=== PATIENT | female | born 1955 | race Hispanic/Latino ===

== ENCOUNTER 2021-02-21 09:10 | Emergency (ER) | payer OTHER ==
[~2021-02-21] VITALS: Ht 152.4 cm; Wt 79.4 kg
[2021-02-21 09:30] LABS: BASOPHILS % (AUTO) 0.5 % (0.0-5.0); EOSINOPHILS % (AUTO) 1.3 % (0.0-8.0); HEMATOCRIT 37.2 % (36-48); LYMPHOCYTES % (AUTO) 36.5 % (21.0-51.0); MEAN CORPUSCULAR HGB CONC 30.9 g/dL (32.0-36.0); MEAN CORPUSCULAR VOLUME 74.5 fL (79-99); MONOCYTES % (AUTO) 6.7 % (3.0-13.0); NEUTROPHILS % (AUTO) 54.6 % (40.0-77.0); PLATELET COUNT (AUTO) 223 K/uL (130-400); RED BLOOD CELL COUNT(AUTO) 4.99 MIL/uL (4.00-5.50); RED CELL DISTRIBUTION WIDTH 17.6 % (11.0-15.5); WHITE BLOOD COUNT (AUTO) 7.9 K/uL (4.8-10.8)
[2021-02-21 09:42] LABS: ALBUMIN 3.4 g/dL (3.5-5.0); BILIRUBIN,TOTAL 0.4 mg/dL (0.2-1.0); CREATININE 0.9 mg/dL (0.5-1.5); TOTAL PROTEIN, SERUM 8.3 g/dL (6.0-8.3)
[2021-02-21 09:42] LABS: APPEARANCE,URINE TURBID (CLEAR); BILIRUBIN,URINE NEGATIVE (NEGATIVE); COLOR,URINE YELLOW (YELLOW); GLUCOSE, URINE (UA) NEGATIVE (NEGATIVE); KETONES,URINE NEGATIVE (NEGATIVE); LEUKOCYTE ESTERASE ,URINE LARGE (NEGATIVE); NITRATE,URINE NEGATIVE (NEGATIVE); OCCULT BLOOD,URINE NEGATIVE (NEGATIVE); PROTEIN,URINE >=300 mg/dL (NEGATIVE); UROBILINOGEN,URINE 0.2 mg/dL (0.2-1.0)
[2021-02-21 09:55] LABS: AMORPHOUS SEDIMENT,UR Many /LPF (None Seen); BACTERIA,URINE Moderate /HPF (None Seen); SQUAMOUS EPITHELIAL CELL,UR Rare /HPF (0-2)
[2021-02-21] MEDS ORDERED: ONDANSETRON 4MG INJ ONE (11:41)
[2021-02-21] MEDS ORDERED: PHENAZOPYRIDINE HCL 200 MG TABLET ONE (11:41)
[2021-02-21] MEDS ORDERED: MORPHINE 4 MG SYG ONE (11:42)
[2021-02-21] MEDS ORDERED: 0.9%NACL 1000ML 1,000 ML IV SCH (12:00)
[2021-02-21] MEDS ORDERED: PHENAZOPYRIDINE HCL 200 MG TABLET PO SCH (12:00)
[2021-02-21] MEDS ORDERED: ONDANSETRON 4MG INJ IVP SCH (12:00)
[2021-02-21] MEDS ORDERED: MORPHINE 4 MG SYG IV SCH (12:00)
[2021-02-21] MEDS ORDERED: CEPH500C2 PO (13:41)
[2021-02-21] MEDS ORDERED: PHEN-847 PO (13:41)
[2021-02-21] MEDS ORDERED: CEFTRIAXONE 1G VIAL IVP ONE (13:50)
[2021-02-21 14:23] VITALS: BP 111/57
== END 2021-02-21 14:20 | disposition home or self-care (01) ==
LOC: EDH 09:10
DX: N39.0 Urinary tract infection, site not specified (principal); R33.9 Retention of urine, unspecified; E86.1 Hypovolemia
CPT/HCPCS: 36415; 51702; 74176; 80053; 81001; 85025; 87077; 87088; 87186; 96361; 96374; 96375; 99284; J0696; J2270; J2405; J7030

== ENCOUNTER 2021-04-15 07:26 | Day surgery (SDC) | payer OTHER ==
[2021-04-13 14:26] LABS: APPEARANCE,URINE CLOUDY (CLEAR); BILIRUBIN,URINE NEGATIVE (NEGATIVE); COLOR,URINE YELLOW (YELLOW); GLUCOSE, URINE (UA) NEGATIVE (NEGATIVE); KETONES,URINE NEGATIVE (NEGATIVE); LEUKOCYTE ESTERASE ,URINE MODERATE (NEGATIVE); NITRATE,URINE POSITIVE (NEGATIVE); OCCULT BLOOD,URINE TRACE-INTACT (NEGATIVE); PH,URINE 6.5 (5.0-8.0); PROTEIN,URINE NEGATIVE (NEGATIVE); UROBILINOGEN,URINE 0.2 mg/dL (0.2-1.0)
[2021-04-13 15:30] LABS: BACTERIA,URINE Moderate /HPF (None Seen); WBC,URINE 26-50 /HPF (0-1)
[2021-04-13 15:31] LABS: SQUAMOUS EPITHELIAL CELL,UR Moderate /HPF (0-2)
[2021-04-14 09:24] VITALS: BP 117/63
[~2021-04-15] VITALS: Ht 154.9 cm; Wt 80.5 kg
[~2021-04-15 07:26] MED LIST: APIX5TAB PO; CEFAZOLIN SODIUM 1 GM VIAL IVP SCH; ENOX40DI8 SQ; LEVOFLOXACIN 500 MG/D5W 100 ML 100 ML IV ONE; OMEP40CA21 PO; TAMS-1 PO
== END 2021-04-15 08:30 | disposition home or self-care (01) ==
LOC: DAH 07:26
PROVIDERS: ATTEND Orthopaedic Surgery
DX: M16.0 Bilateral primary osteoarthritis of hip (principal); U07.1 COVID-19; G89.29 Other chronic pain; Z79.01 Long term (current) use of anticoagulants; Z79.899 Other long term (current) drug therapy; Z98.890 Other specified postprocedural states; Z53.8 Procedure and treatment not carried out for other reasons
CPT/HCPCS: 81001; 87077 ×2; 87088; 87186 ×2; 87635; 87641; C9803; J1956

== ENCOUNTER 2021-06-11 10:52 | Inpatient (IN) | payer OTHER ==
[2021-06-09 09:46] LABS: BASOPHILS % (AUTO) 1.3 % (0.0-5.0); EOSINOPHILS % (AUTO) 2.4 % (0.0-8.0); HEMATOCRIT 39.2 % (36-48); LYMPHOCYTES % (AUTO) 33.4 % (21.0-51.0); MEAN CORPUSCULAR HEMOGLOBIN 23.9 pg (27.0-33.0); MEAN CORPUSCULAR HGB CONC 30.1 g/dL (32.0-36.0); MEAN CORPUSCULAR VOLUME 79.5 fL (79-99); MONOCYTES % (AUTO) 8.4 % (3.0-13.0); NEUTROPHILS % (AUTO) 54.3 % (40.0-77.0); PLATELET COUNT (AUTO) 194 K/uL (130-400); RED BLOOD CELL COUNT(AUTO) 4.93 MIL/uL (4.00-5.50); RED CELL DISTRIBUTION WIDTH 15.8 % (11.0-15.5); WHITE BLOOD COUNT (AUTO) 4.6 K/uL (4.8-10.8)
[2021-06-09 09:53] LABS: APPEARANCE,URINE CLOUDY (CLEAR); BILIRUBIN,URINE NEGATIVE (NEGATIVE); COLOR,URINE YELLOW (YELLOW); GLUCOSE, URINE (UA) NEGATIVE (NEGATIVE); KETONES,URINE NEGATIVE (NEGATIVE); LEUKOCYTE ESTERASE ,URINE SMALL (NEGATIVE); NITRATE,URINE POSITIVE (NEGATIVE); OCCULT BLOOD,URINE NEGATIVE (NEGATIVE); PROTEIN,URINE TRACE mg/dL (NEGATIVE); UROBILINOGEN,URINE 0.2 mg/dL (0.2-1.0)
[2021-06-09 09:55] LABS: CREATININE 0.7 mg/dL (0.5-1.5); POTASSIUM 4.1 mmol/L (3.5-5.1)
[2021-06-09 10:19] LABS: PROTHROMBIN TIME 10.9 SEC (9.6-11.6)
[2021-06-09 10:39] LABS: BACTERIA,URINE Many /HPF (None Seen); RBC,URINE 0-1 /HPF (0-1); SQUAMOUS EPITHELIAL CELL,UR Few /HPF (0-2)
[2021-06-10 08:25] VITALS: BP 131/66
[2021-06-11] VITALS (18 sets, daily range): BP systolic 73–125; BP diastolic 38–75
[~2021-06-11] VITALS: Ht 157.5 cm; Wt 81.6 kg
[~2021-06-11 10:52] MED LIST changes: -CEFAZOLIN SODIUM 1 GM VIAL IVP SCH; +GENTAMICIN SULFATE IV SCH; -LEVOFLOXACIN 500 MG/D5W 100 ML 100 ML IV ONE; +OMEP20TA20 PO; -OMEP40CA21 PO; +[UNRECOGNIZED DRUG - OTHER] IV SCH
[2021-06-11] MEDS ORDERED: LACTATED RINGERS 1000ML 1,000 ML IV ONE (11:14)
[2021-06-11] MEDS ORDERED: GENTAMICIN SULFATE 240 MG in 0.9%NACL 100ML 100 ML IV SCH (11:30)
[2021-06-11] MEDS: CEFAZOLIN SODIUM 1 GM VIAL ONE ×2 (11:53→15:25)
[2021-06-11] MEDS ORDERED: CEFAZOLIN SODIUM 1 GM VIAL ONE ×2 (15:00→18:17)
[2021-06-11] MEDS ORDERED: MIDAZOLAM HCL 1 MG/ML 2ML VIAL ONE (15:07)
[2021-06-11] MEDS ORDERED: ROCURONIUM 10MG/1ML SYR 10 MG/ML ML ONE ×2 (15:07→16:43)
[2021-06-11] MEDS ORDERED: PROPOFOL 10 MG/ML 20ML VIAL IV ONE (15:07)
[2021-06-11] MEDS ORDERED: FENTANYL CITRATE PF 50 MCG/1 ML 2ML VIAL ONE (15:07)
[2021-06-11] MEDS ORDERED: LIDOCAINE PF 100MG/5ML (2%) SYRINGE 5ML ONE (15:07)
[2021-06-11] MEDS ORDERED: SUCCINYLCHOLINE CHLORIDE 20 MG/ML 10 ML VIAL ONE (15:07)
[2021-06-11] MEDS ORDERED: ROPIVACAINE 0.5% 5MG/ML 30ML IJ ONE ×2 (15:11→20:05)
[2021-06-11] MEDS ORDERED: DEXAMETHASONE SOD PHOSPHATE 10MG/ML 1ML VIAL ONE (15:24)
[2021-06-11] MEDS ORDERED: CEFAZOLIN SODIUM 1 GM VIAL IRRIG ONE (16:14)
[2021-06-11] MEDS ORDERED: EPHEDRINE SULFATE 50 MG/ML AMPULE ONE ×2 (16:21→20:12)
[2021-06-11] MEDS ORDERED: NEOSTIGMINE 5MG/5ML SYR IV ONE (18:46)
[2021-06-11] MEDS ORDERED: GLYCOPYRROLATE 1 MG/5 ML SYRINGE ONE (18:46)
[2021-06-11] MEDS ORDERED: PHENYLEPHRINE HCL 10 MG/ML 1ML VIAL IV ONE (18:55)
[2021-06-11] MEDS ORDERED: POTASSIUM CHLORIDE 10% ELIXIR 20 MEQ/15 ML UDCUP PO PRN (19:00)
[2021-06-11] MEDS ORDERED: KETOROLAC 15MG/ML VIAL (15MG/ML) IV PRN (19:00)
[2021-06-11] MEDS: ACETAMINOPHEN 500 MG TABLET PO SCH (19:00)
[2021-06-11] MEDS ORDERED: FERROUS FUMARATE 324 MG TABLET PO PRN (19:00)
[2021-06-11] MEDS ORDERED: TRAMADOL HCL 50 MG TABLET PO PRN (19:00)
[2021-06-11] MEDS ORDERED: POTASSIUM CHLORIDE 20MEQ/100ML 100 ML IV PRN (19:00)
[2021-06-11] MEDS ORDERED: DiphenhydrAMINE HCL 50 MG/ML VIAL IVP PRN (19:00)
[2021-06-11] MEDS: 0.9%NACL 1000ML 1,000 ML IV SCH ×3 (19:00→20:00)
[2021-06-11] MEDS ORDERED: KCL 20 MEQ ERTAB PO PRN (19:00)
[2021-06-11] MEDS ORDERED: TEMAZEPAM 15 MG CAPSULE PO PRN (19:00)
[2021-06-11] MEDS ORDERED: LIDOCAINE HCL-MPF 1% 2ML VIAL IV PRN (19:00)
[2021-06-11] MEDS ORDERED: MEPERIDINE-PF 25 MG/ML SYG ONE (20:05)
[2021-06-11] MEDS: CELECOXIB 200 MG CAP PO SCH (21:00)
[2021-06-11] MEDS: FAMOTIDINE 20MG TAB PO SCH (21:00)
[2021-06-11] MEDS: ONDANSETRON 4MG INJ IVP PRN (21:29)
[2021-06-11] MEDS ORDERED: PROMETHAZINE HCL 25 MG/ML 1ML AMPULE IM PRN (23:00)
[2021-06-11] MEDS: CEFAZOLIN SODIUM 1 GM VIAL IVP SCH (23:34)
[2021-06-12] VITALS (9 sets, daily range): BP systolic 97–130; BP diastolic 43–67
[2021-06-12] MEDS: ACETAMINOPHEN 500 MG TABLET PO SCH ×3 (03:00→21:06)
[2021-06-12 04:15] LABS: HEMATOCRIT 29.6 % (36-48); MEAN CORPUSCULAR HEMOGLOBIN 24.8 pg (27.0-33.0); MEAN CORPUSCULAR HGB CONC 31.4 g/dL (32.0-36.0); MEAN CORPUSCULAR VOLUME 78.9 fL (79-99); RED BLOOD CELL COUNT(AUTO) 3.75 MIL/uL (4.00-5.50); RED CELL DISTRIBUTION WIDTH 15.9 % (11.0-15.5); WHITE BLOOD COUNT (AUTO) 9.3 K/uL (4.8-10.8)
[2021-06-12 04:27] LABS: CREATININE 0.8 mg/dL (0.5-1.5); POTASSIUM 4.4 mmol/L (3.5-5.1)
[2021-06-12] MEDS: 0.9%NACL 1000ML 1,000 ML IV SCH (05:00)
[2021-06-12] MEDS: APIXABAN 5 MG TABLET PO SCH ×4 (08:40→21:05)
[2021-06-12] MEDS: FAMOTIDINE 20MG TAB PO SCH ×2 (08:43→21:05)
[2021-06-12] MEDS: PANTOPRAZOLE 40 MG TAB DR PO SCH (08:44)
[2021-06-12] MEDS: CELECOXIB 200 MG CAP PO SCH ×2 (08:44→21:05)
[2021-06-12] MEDS: TAMSULOSIN HCL 0.4 MG CAP.ER.24H PO SCH ×2 (08:44→08:45)
[2021-06-12] MEDS: POLYETHYLENE GLYCOL 3350 17 GM POWD.PACK PO SCH (08:44)
[2021-06-12] MEDS: CEFAZOLIN SODIUM 1 GM VIAL IVP SCH (08:45)
[2021-06-12] MEDS: OXYCODONE HCL 5 MG TAB PO PRN ×2 (08:46→13:12)
[2021-06-12] MEDS: CALCIUM CARB 500MG PO PRN (21:04)
[2021-06-13 03:55] VITALS: BP 98/50
[2021-06-13] MEDS: ACETAMINOPHEN 500 MG TABLET PO SCH ×3 (05:47→21:14)
[2021-06-13] MEDS: ONDANSETRON 4MG INJ IVP PRN (07:52)
[2021-06-13] MEDS: PANTOPRAZOLE 40 MG TAB DR PO SCH (07:53)
[2021-06-13 08:00] VITALS: BP 112/54
[2021-06-13] MEDS: APIXABAN 5 MG TABLET PO SCH ×4 (09:00→20:00)
[2021-06-13] MEDS: FAMOTIDINE 20MG TAB PO SCH ×2 (10:19→19:56)
[2021-06-13] MEDS: TAMSULOSIN HCL 0.4 MG CAP.ER.24H PO SCH (10:19)
[2021-06-13] MEDS: CELECOXIB 200 MG CAP PO SCH ×2 (10:19→19:56)
[2021-06-13] MEDS: POLYETHYLENE GLYCOL 3350 17 GM POWD.PACK PO SCH (10:23)
[2021-06-13 12:00] VITALS: BP 105/52
[2021-06-13 16:00] VITALS: BP 124/62
[2021-06-13] MEDS: CALCIUM CARB 500MG PO PRN (17:10)
[2021-06-13 18:31] LABS: HEMATOCRIT 29.7 % (36-48)
[2021-06-13] MEDS ORDERED: FUROSEMIDE 20MG VIAL ONE (18:36)
[2021-06-13] MEDS ORDERED: FUROSEMIDE 20MG VIAL IV ONE (19:00)
[2021-06-13] MEDS: OXYCODONE HCL 5 MG TAB PO PRN (19:57)
[2021-06-13 20:00] VITALS: BP 107/62
[2021-06-14] VITALS: BP 108/58
[2021-06-14 04:00] VITALS: BP 109/57
[2021-06-14 04:15] LABS: HEMATOCRIT 29.7 % (36-48)
[2021-06-14] MEDS: ACETAMINOPHEN 500 MG TABLET PO SCH ×3 (05:18→20:11)
[2021-06-14] MEDS: PANTOPRAZOLE 40 MG TAB DR PO SCH ×2 (07:30→08:43)
[2021-06-14 08:11] VITALS: BP 107/58
[2021-06-14] MEDS: POLYETHYLENE GLYCOL 3350 17 GM POWD.PACK PO SCH (08:42)
[2021-06-14] MEDS: APIXABAN 5 MG TABLET PO SCH ×3 (08:42→20:10)
[2021-06-14] MEDS: CELECOXIB 200 MG CAP PO SCH ×2 (08:43→20:10)
[2021-06-14] MEDS: FAMOTIDINE 20MG TAB PO SCH ×2 (08:43→20:10)
[2021-06-14] MEDS: TAMSULOSIN HCL 0.4 MG CAP.ER.24H PO SCH ×2 (08:44→09:00)
[2021-06-14] MEDS: OXYCODONE HCL 5 MG TAB PO PRN ×2 (08:53→13:05)
[2021-06-14 11:18] VITALS: BP 118/63
[2021-06-14] MEDS ORDERED: MAGNESIUM CITRATE 296 ML SOLUTION PO SCH (11:30)
[2021-06-14 16:11] VITALS: BP 118/62
[2021-06-14] MEDS ORDERED: BISACODYL 10 MG SUPP.RECT RC PRN (19:00)
[2021-06-14 20:00] VITALS: BP 115/62
[2021-06-15] VITALS (7 sets, daily range): BP systolic 102–129; BP diastolic 55–70
[2021-06-15] MEDS: PANTOPRAZOLE 40 MG TAB DR PO SCH (05:58)
[2021-06-15] MEDS: ACETAMINOPHEN 500 MG TABLET PO SCH ×3 (05:59→21:02)
[2021-06-15] MEDS: CELECOXIB 200 MG CAP PO SCH ×2 (07:51→21:00)
[2021-06-15] MEDS: APIXABAN 5 MG TABLET PO SCH ×2 (07:51→21:00)
[2021-06-15] MEDS: TAMSULOSIN HCL 0.4 MG CAP.ER.24H PO SCH (07:52)
[2021-06-15] MEDS: FAMOTIDINE 20MG TAB PO SCH ×2 (07:52→21:00)
[2021-06-15] MEDS: POLYETHYLENE GLYCOL 3350 17 GM POWD.PACK PO SCH (07:53)
[2021-06-15] MEDS ORDERED: HYDR-4060 PO (20:36)
[2021-06-15] MEDS ORDERED: FERR324T10 PO (20:36)
[2021-06-16 04:13] VITALS: BP 131/63
[2021-06-16] MEDS: ACETAMINOPHEN 500 MG TABLET PO SCH (06:22)
[2021-06-16] MEDS: PANTOPRAZOLE 40 MG TAB DR PO SCH (06:22)
[2021-06-16 08:03] VITALS: BP 127/75
[2021-06-16] MEDS: TAMSULOSIN HCL 0.4 MG CAP.ER.24H PO SCH (09:00)
[2021-06-16] MEDS: POLYETHYLENE GLYCOL 3350 17 GM POWD.PACK PO SCH (09:00)
[2021-06-16] MEDS: FAMOTIDINE 20MG TAB PO SCH (09:08)
[2021-06-16] MEDS: APIXABAN 5 MG TABLET PO SCH (09:09)
[2021-06-16] MEDS: CELECOXIB 200 MG CAP PO SCH (09:09)
[2021-06-16 11:21] VITALS: BP 128/76
== END 2021-06-16 12:33 | disposition home health service (06) | DRG 470 ==
LOC: DAH 10:52 → 4BH 10:53 → OBSVTOIN 10:53
PROVIDERS: ADMIT Orthopaedic Surgery; ATTEND Orthopaedic Surgery
PROC: 0SR903Z Replacement of Right Hip Joint with Ceramic Synthetic Substitute, Open Approach (ICD-10-PCS; principal; 2021-06-12)
PROC: 30233N1 Transfusion of Nonautologous Red Blood Cells into Peripheral Vein, Percutaneous Approach (ICD-10-PCS; 2021-06-13)
DX: M16.31 Unilateral osteoarthritis resulting from hip dysplasia, right hip (principal); D62 Acute posthemorrhagic anemia; Z20.822 Contact with and (suspected) exposure to COVID-19; Z90.710 Acquired absence of both cervix and uterus; Z87.440 Personal history of urinary (tract) infections; Z86.711 Personal history of pulmonary embolism; Z87.11 Personal history of peptic ulcer disease; M81.0 Age-related osteoporosis without current pathological fracture; Z79.01 Long term (current) use of anticoagulants
CPT/HCPCS: 36415; 36430; 73503; 80048; 81001; 85014; 85018; 85025; 85027; 85610; 86850; 86900; 86901; 86923; 87088; 87635; 87641; 93005; 97039; C1776; C9803; G0378; J0330; J0690; J1100; J1580; J1940; J2001; J2175; J2250; J2370; J2405; J2704; J2710; J2795; J3010; J3490; J7030; J7120; P9016

== ENCOUNTER → 2021-12-12 | Outpatient (CLI) | payer OTHER ==
[~2021-12-12] MED LIST changes: -ENOX40DI8 SQ; +FERR324T10 PO; -GENTAMICIN SULFATE IV SCH; +HYDR-4060 PO; -[UNRECOGNIZED DRUG - OTHER] IV SCH
== END | disposition home or self-care (01) ==
LOC: SLP 20:13
PROVIDERS: ATTEND Internal Medicine Cardiovascular Disease
DX: G47.33 Obstructive sleep apnea (adult) (pediatric) (principal)
CPT/HCPCS: 95810

== ENCOUNTER 2023-10-27 22:02 | Emergency (ER) | payer OTHER ==
[~2023-10-27] VITALS: Ht 154.9 cm; Wt 91.2 kg
[2023-10-27 22:04] VITALS: BP 115/73
[2023-10-27 22:47] LABS: APPEARANCE,URINE TURBID (CLEAR); BILIRUBIN,URINE NEGATIVE (NEGATIVE); COLOR,URINE YELLOW (YELLOW); GLUCOSE, URINE (UA) NEGATIVE (NEGATIVE); KETONES,URINE NEGATIVE (NEGATIVE); LEUKOCYTE ESTERASE ,URINE 500 Leu/uL (NEGATIVE); NITRATE,URINE NEGATIVE (NEGATIVE); OCCULT BLOOD,URINE MODERATE (NEGATIVE); PH,URINE 7.5 (5.0-8.0); PROTEIN,URINE 200 mg/dL (NEGATIVE); UROBILINOGEN,URINE 0.2 mg/dL (0.2-1.0)
[2023-10-27 22:48] LABS: ADD UA MICROSCOPIC YES
[2023-10-27 23:10] LABS: BACTERIA,URINE MANY /HPF (None Seen); MUCUS,URINE RARE LPF (None Seen); RBC,URINE 51-100 /HPF (0-1); SQUAMOUS EPITHELIAL CELL,UR MOD /HPF (0-2); WBC CLUMP MANY /HPF (0-1); WBC,URINE TNTC /HPF (0-1)
[2023-10-27 23:29] LABS: BASOPHILS # (AUTO) 0.04 K/uL (0.00-0.20); BASOPHILS % (AUTO) 0.6 % (0.0-5.0); EOSINOPHILS # (AUTO) 0.25 K/uL (0.00-0.70); HEMATOCRIT 40.3 % (36-48); IMMATURE GRANULOCYTE ABSOLUTE 0.04 K/uL (0-1); LYMPHOCYTES # (AUTO) 1.1 K/uL (1.0-4.8); LYMPHOCYTES % (AUTO) 17.2 % (21.0-51.0); MEAN CORPUSCULAR HEMOGLOBIN 25.9 pg (27.0-33.0); MEAN CORPUSCULAR HGB CONC 31.3 g/dL (32.0-36.0); MEAN CORPUSCULAR VOLUME 82.8 fL (79-99); MONOCYTES # (AUTO) 0.5 K/uL (0.1-1.0); MONOCYTES % (AUTO) 8.3 % (3.0-13.0); NEUTROPHILS # (AUTO) 4.4 K/uL (1.8-7.7); NEUTROPHILS % (AUTO) 69.3 % (40.0-77.0); PLATELET COUNT (AUTO) 207 K/uL (130-400); RED BLOOD CELL COUNT(AUTO) 4.87 MIL/uL (4.00-5.50); WHITE BLOOD COUNT (AUTO) 6.3 K/uL (4.8-10.8)
[2023-10-27 23:40] LABS: INR 0.98 (0.85-1.15); PROTHROMBIN TIME 10.6 SEC (9.6-11.6)
[2023-10-27 23:42] LABS: PARTIAL THROMBOPLASTIN TIME 31.8 SEC (26.3-35.5)
[2023-10-27 23:46] LABS: POTASSIUM 4.3 mmol/L (3.5-5.1)
[2023-10-27 23:52] LABS: ALBUMIN 2.9 g/dL (3.5-5.0); BILIRUBIN,TOTAL 0.4 mg/dL (0.2-1.0); TOTAL PROTEIN, SERUM 7.7 g/dL (6.0-8.3)
[2023-10-28 00:03] VITALS: PULSE 80; RESP 20; TEMP 98.3; O2SAT 98
[2023-10-28] MEDS ORDERED: LEVO750T39 PO (00:09)
[2023-10-28] MEDS: OXYCODONE/ACETAMIN 5/325MG TAB PO ONE (00:36)
[2023-10-28] MEDS: cefTRIAXone 1G VIAL IVPB ONE (00:36)
[2023-10-28] MEDS ORDERED: TAMS-1 PO (01:28)
== END 2023-10-28 01:41 | disposition home or self-care (01) ==
LOC: EDH 22:02
DX: N39.0 Urinary tract infection, site not specified (principal); R33.9 Retention of urine, unspecified; Z79.899 Other long term (current) drug therapy; Z98.890 Other specified postprocedural states
CPT/HCPCS: 99283; 80053; 85025; 85610; 85730; 87086; 81001; 36415; 51701; 96374; J0696

== ENCOUNTER 2023-12-26 08:12 | Emergency (ER) | payer OTHER ==
[~2023-12-26] VITALS: Ht 157.5 cm; Wt 92.5 kg
[~2023-12-26 08:12] MED LIST changes: +LEVO750T39 PO
[2023-12-26 08:50] LABS: BASOPHILS # (AUTO) 0.04 K/uL (0.00-0.20); BASOPHILS % (AUTO) 0.5 % (0.0-5.0); EOSINOPHILS # (AUTO) 0.14 K/uL (0.00-0.70); EOSINOPHILS % (AUTO) 1.8 % (0.0-8.0); HEMATOCRIT 44.1 % (36-48); IMMATURE GRANULOCYTE ABSOLUTE 0.02 K/uL (0-1); LYMPHOCYTES # (AUTO) 0.9 K/uL (1.0-4.8); LYMPHOCYTES % (AUTO) 11.2 % (21.0-51.0); MEAN CORPUSCULAR HEMOGLOBIN 26.2 pg (27.0-33.0); MEAN CORPUSCULAR HGB CONC 31.7 g/dL (32.0-36.0); MEAN CORPUSCULAR VOLUME 82.4 fL (79-99); MONOCYTES # (AUTO) 0.3 K/uL (0.1-1.0); MONOCYTES % (AUTO) 3.3 % (3.0-13.0); NEUTROPHILS # (AUTO) 6.5 K/uL (1.8-7.7); NEUTROPHILS % (AUTO) 82.9 % (40.0-77.0); PLATELET COUNT (AUTO) 209 K/uL (130-400); RED BLOOD CELL COUNT(AUTO) 5.35 MIL/uL (4.00-5.50); WHITE BLOOD COUNT (AUTO) 7.8 K/uL (4.8-10.8)
[2023-12-26 08:57] LABS: APPEARANCE,URINE CLOUDY (CLEAR); BILIRUBIN,URINE MODERATE mg/dL (NEGATIVE); COLOR,URINE BROWN (YELLOW); GLUCOSE, URINE (UA) 100 mg/dL (NEGATIVE); KETONES,URINE 15 mg/dL (NEGATIVE); LEUKOCYTE ESTERASE ,URINE LARGE Leu/uL (NEGATIVE); NITRATE,URINE POSITIVE (NEGATIVE); OCCULT BLOOD,URINE SMALL (NEGATIVE); PROTEIN,URINE >=300 mg/dL (NEGATIVE)
[2023-12-26 09:00] LABS: POTASSIUM 3.8 mmol/L (3.5-5.1)
[2023-12-26 09:02] LABS: ADD UA MICROSCOPIC YES
--- NOTE | 2023-12-26 09:23 | HMCIMG ---
CT ABDOMEN/PELVIS W/O CONTRAST HISTORY: Abdominal pain COMPARISON: 02/21/2021 TECHNIQUE: Multiple sequential axial images of the abdomen and pelvis were obtained from the dome of the diaphragm through symphysis pubis. Patient was not given contrast through intravenous route. Oral contrast was not given. FINDINGS: No pleural effusion is seen bilaterally. Left lower lung subsegmental atelectasis changes are seen. Elevation of left hemidiaphragm is seen. There is hiatal hernia. Degenerative changes of the thoracolumbar spine are present. The heart is not enlarged. Gallstone is seen in the distended gallbladder. Liver measures 17 cm. The liver, spleen, adrenal glands and pancreas are unremarkable. There is no evidence of hydronephrosis bilaterally. No evidence of renal stone is seen. Fecal material is seen in the colon. There are normal size retroperitoneal and mesenteric lymph nodes. No ascites is seen. Atherosclerotic changes are present. No CT evidence of acute appendicitis is seen. There is diverticulosis. Pelvic sidewalls are symmetric bilaterally. Bladder is distended with bladder wall thickening measuring 8mm with adjacent fat stranding suspicious for cystitis. Urinalysis correlation may be helpful. Postop changes are seen of the right hip. IMPRESSION: 1. Distended bladder with adjacent fat stranding may be related to cystitis. Urinalysis correlation may be helpful. Diverticulosis. Fecal material in the colon. Gallstone in the distended gallbladder. CT was performed with one or more following dose reduction techniques: automated exposure control, adjustment of the mA and kv according to patient's size, or use of a iterative reconstruction technique.
[2023-12-26 09:30] LABS: WBC,URINE TNTC /HPF (0-1)
[2023-12-26 09:31] LABS: BACTERIA,URINE Many /HPF (None Seen); MUCUS,URINE Few LPF (None Seen); SQUAMOUS EPITHELIAL CELL,UR Few /HPF (0-2)
--- NOTE | 2023-12-26 09:34 | ERN ---
General Chief Complaint: Painful Urination Stated Complaint: DYSURIA, FLANK PAIN Time Seen by MD: 08:27 Source: patient History of Present Illness Initial Comments Patient is a 68-year-old female coming in to be evaluated for lower abdominal discomfort. Patient states that this has been going on for a couple of days. Patient also states that she has a history of a ventral hernia and was concerned that it might have reopened. No fever no chills. Allergies: Coded Allergies: No Known Allergies (Unverified Allergy, Unknown, 02/21/21) Home Meds Active Scripts Tamsulosin HCl (Flomax) 0.4 Mg Cap.er.24h, 0.4 MG PO DAILY for 5 Days, #5 CAPSULE. Prov:KESHA MOORE 10/28/23 Levofloxacin (Levofloxacin) 750 Mg Tablet, 750 MG PO DAILY for 7 Days, #7 TAB Prov:PASCUAL ZAVALA MD 10/28/23 Hydrocodone/Acetaminophen (Hydrocodon-Acetaminophen 5-325) 1 Each Tablet, 1-2 EACH PO Q6HPRN PRN for ACUTE POST-OP PAIN, #56 TAB 0 Refills Prov:RACHEL STONE MD 06/15/21 Ferrous Fumarate (Hemocyte) 324 Mg Tablet, 324 MG PO DAILY PRN for ACUTE BLOOD LOSS ANEMIA, #30 TAB 0 Refills Prov:RACHEL STONE MD 06/15/21 Reported Medications Omeprazole (Omeprazole) 20 Mg Tablet.dr, 20 MG PO DAILY, TAB 06/10/21 Tamsulosin HCl (Flomax) 0.4 Mg Cap.er.24h, 0.4 MG PO QODAY, CAPSULE. 04/14/21 Apixaban (Eliquis) 5 Mg Tablet, 5 MG PO BID, TAB 04/14/21 Past Medical History Past Medical History: Arthritis, DVT, GERD, UTI, Other Medical History Other: ECOLI, HERNIA, HARD OF HEARING Past Surgical History: Hysterectomy, Other Surgical History Other: RT HIP Family History Family History: Negative Social History Social History: Negative, Other Female( History) History: Not Applicable ROS Dictation CONSTITUTIONAL: No chills, no fever, no weakness, no diaphoresis, no malaise. HEAD/FACE: No signs of trauma. EENT: No eye pain, no blurred vision, no tearing, no double vision, no ear pain, no ear discharge, no nose pain, no nasal congestion, no throat pain, no throat swelling, no mouth pain. RESPIRATORY: No cough, no orthopnea, no SOB, no stridor, no wheezing. CARDIOVASCULAR: No chest pain, no edema, no palpitations, no syncope. GASTROINTESTINAL/ABDOMINAL: abdominal pain, no constipation, no diarrhea, no nausea, no vomiting. GENITOURINARY: No abnormal discharge, no dysuria, no frequent urination, no hematuria. No complaints of pain in the genitals. MUSCULOSKELETAL: No back pain, no gout, no joint pain, no joint swelling, no muscle pain, no muscle stiffness, no neck pain. INTEGUMENTARY: No change in color, no change in hair/nails, no dryness, no lesion, no lumps, no rash. NEUROLOGICAL/PSYCH: No anxiety, not depressed, no emotional problem, no headache, no numbness, no pre-existing deficit, no history of seizures, no tremors, no weakness. HEMATOLOGIC/LYMPHATIC: Not anemic, no history of blood clots, no apparent bleeding, no bruising, glands not swollen. All Systems Negative, Except as Noted. Physical Exam Physical Exam Dictation VITAL SIGNS: Reviewed. GENERAL APPEARANCE: Alert, oriented x3, no acute distress, obese. HEAD AND FACE: Non-traumatic. EYES: PERRL, pink conjunctivas, eyelid no trauma, anterior chamber clear. EARS: Pinnas intact and no signs of trauma or erythema. Ear canals clear and no discharge. TMs no erythema. NOSE: No discharge, no bleeding. OROPHARYNX: Mouth normal, teeth no caries, tongue pink. Pharynx clear, no erythema. Tonsils no exudates, no abscesses noted. Mucous membrane moist. NECK: Supple, non-tender, no thyromegaly, no masses, no JVD, no bruits. BREAST: Deferred. CHEST: No tenderness, no crepitus, no paradoxical movement, no retractions. LUNGS: Clear, well-ventilated, symmetric, no rales, no wheezing, no rhonchi, no stridor, good breath sounds bilaterally. HEART: Regular rate, regular rhythm, no murmur, no gallops. VASCULAR: No peripheral edema. ABDOMEN: Soft, positive bowel sounds, nondistended, no guarding, lower abdominal discomfort on palpation, no rebound, no masses no hepatomegaly, no splenomegaly, no Bartlett's sign, no hernias. RECTAL: Deferred. GENITAL: Deferred. NEUROLOGICAL: Normal speech, gross motor function intact, gross sensory function intact. MUSCULOSKELETAL: Neck nontender, full range of motion, back nontender, full range of motion. EXTREMITIES: Nontender, full range of motion. SKIN: Color pink, dry, no turgor, no rash, no lacerations, no abrasions, no contusions. LYMPHATICS: Deferred. Results Laboratory and Microbiology Lab and Micro Result Laboratory Tests Test 12/26/23 08:27 12/26/23 08:35 Urine Color BROWN (YELLOW) Urine Appearance CLOUDY (CLEAR) H Urine pH 8.0 (5.0-8.0) Urine Specific [place] 1.020 (1.001-1.031) Urine Protein >=300 mg/dL (NEGATIVE) H Urine Glucose (UA) 100 mg/dL (NEGATIVE) H Urine Ketones 15 mg/dL (NEGATIVE) H Urine Occult Blood SMALL (NEGATIVE) H Urine Nitrate POSITIVE (NEGATIVE) H Urine Bilirubin MODERATE mg/dL (NEGATIVE) H Urine Urobilinogen 4.0 mg/dL (0.2-1.0) H Urine Leukocyte Esterase LARGE Elinor/uL (NEGATIVE) H Urine RBC 11-25 /HPF (0-1) H Urine WBC TNTC /HPF (0-1) H Urine Squamous Epithelial Cells Few /HPF (0-2) Urine Bacteria Many /HPF (None Seen) H White Blood Count 7.8 K/uL (4.8-10.8) Red Blood Count 5.35 MIL/uL (4.00-5.50) Hemoglobin 14.0 g/dL (12.0-16.0) Hematocrit 44.1 % (36-48) Mean Corpuscular Volume 82.4 fL (79-99) Mean Corpuscular Hemoglobin 26.2 pg (27.0-33.0) L Mean Corpuscular Hemoglobin Concent 31.7 g/dL (32.0-36.0) L Red Cell Distribution Width 15.0 % (11.0-15.5) Platelet Count 209 K/uL (130-400) Mean Platelet Volume 9.3 fL (7.5-10.5) Immature Granulocyte % (Auto) 0.3 % (0-1) Neutrophils (%) (Auto) 82.9 % (40.0-77.0) H Lymphocytes (%) (Auto) 11.2 % (21.0-51.0) L Monocytes (%) (Auto) 3.3 % (3.0-13.0) Eosinophils (%) (Auto) 1.8 % (0.0-8.0) Basophils (%) (Auto) 0.5 % (0.0-5.0) Neutrophils # (Auto) 6.5 K/uL (1.8-7.7) Lymphocytes # (Auto) 0.9 K/uL (1.0-4.8) L Monocytes # (Auto) 0.3 K/uL (0.1-1.0) Eosinophils # (Auto) 0.14 K/uL (0.00-0.70) Basophils # (Auto) 0.04 K/uL (0.00-0.20) Absolute Immature Granulocyte (auto 0.02 K/uL (0-1) Nucleated Red Blood Cells 0.0 % (0.0-0.19) Sodium Level 137 mmol/L (136-145) Potassium Level 3.8 mmol/L (3.5-5.1) Chloride Level 100 mmol/L (101-111) L Carbon Dioxide Level 30 mmol/L (21-32) Blood Urea Nitrogen 12 mg/dL (7-18) Creatinine 1.0 mg/dL (0.5-1.0) Glomerular Filtration Rate Calc 61 mL/min (>90) Random Glucose 119 mg/dL (70-105) H Total Calcium 9.2 mg/dL (8.5-10.1) Labs Reviewed?: Yes MDM MDM: Differential diagnosis: UTI, cystitis Patient is a 68-year-old female coming in to be evaluated for lower abdominal discomfort. Laboratory workup positive for urinary tract infection. Patient was offered to keep her in the hospital for further evaluation and treatment patient refused state she wants to go home. Patient will be discharged in stable condition with diagnosis urinary tract infection antibiotics will be provided. ED Course Orders Procedure Category Date Status Time Urinalysis Profile LAB 12/26/23 Complete 08:18 Cbc With Differential LAB 12/26/23 Complete 08:18 Basic Metabolic Panel LAB 12/26/23 Complete 08:18 Ct Abdomen/Pelvis W/O CT 12/26/23 Resulted Contrast 08:43 Culture Urine ROBERT 12/26/23 In Process 09:02 Ceftriaxone 1g Vial PHA 12/26/23 In Process (Rocephine 1g Inj) 10:00 Phenazopyridine Hcl PHA 12/26/23 In Process 200 Mg Tab (Pyridium 10:00 Phenazopyridine Hcl PHA 12/26/23 Complete 200 Mg Tab (Pyridium 09:49 Current Medications Medications (Trade) Dose Ordered Sig/Preston Route PRN Reason Start Time Stop Time Status Last Admin Dose Admin Ceftriaxone Sodium (ROCEphine 1G INJ) 1 gm ONCE ONCE IVPB 12/26/23 10:00 12/26/23 10:01 12/26/23 09:51 Phenazopyridine HCl (PYRIdium HCL 200 MG TAB) 200 mg ONCE ONCE PO 12/26/23 10:00 12/26/23 10:01 12/26/23 09:51 Phenazopyridine HCl (PYRIdium HCL 200 MG TAB) 200 mg STK-MED ONCE .ROUTE 12/26/23 09:49 12/26/23 09:49 DC Vital Signs Date Time Temp Pulse Resp B/P (MAP) Pulse Ox O2 Delivery O2 Flow Rate FiO2 12/26/23 09:30 98.1 72 16 133/75 99 Room Air* 0 12/26/23 08:35 99.0 97 16 140/81 98 Room Air* 0 12/26/23 08:14 99.5 118 16 110/79 96 Room Air 0 DX & DISP Disposition: Discharge Departure Impression: Primary Impression: Acute UTI Condition: Stable Scripts Levofloxacin (Levaquin 750Mg Tabs) 750 Mg Tablet 1 TAB PO DAILY for 7 Days, #7 TAB 0 Refills Prov: FRANKLIN ONEILL MD 12/26/23 Additional Instructions: FOLLOW-UP WITH PRIMARY CARE PROVIDER IN 1 TO 2 DAYS. TAKE MEDICATIONS DIRECTED HERE IN THE EMERGENCY ROOM. OKAY TO CONTINUE HOME MEDICATIONS UNLESS OTHERWISE DISCUSSED DURING YOUR VISIT IN THE EMERGENCY ROOM TODAY. RETURN TO YOUR NEAREST EMERGENCY ROOM IF SYMPTOMS WORSEN OR IF THERE IS NO IMPROVEMENT. CALL 911 IF YOU NEED IMMEDIATE ASSISTANCE. TAKE TYLENOL [id number] NEEDED AND IF NO CONTRAINDICATIONS ARE PRESENT. INCREASE ORAL HYDRATION. A WOUND CULTURE OR URINE CULTURE WAS ORDERED HERE IN THE EMERGENCY ROOM DEPARTMENT PLEASE FOLLOW-UP WITH PRIMARY CARE PROVIDER AND ADVISE THEM TO GET REPEAT PORTS FROM OUR FACILITY. IF YOU HAD ANY SHI WRAP/SPLINTS THAT WERE APPLIED HERE, PLEASE DO NOT REMOVE THEM UNTIL YOU SEE YOUR PRIMARY CARE OR SPECIALTY. Referrals: Referrals: THANG MCGINNIS MD (PCP) Time of Disposition: 09:57 FRANKLIN ONEILL MD Dec 26, 2023 09:34
[2023-12-26] MEDS: PHENAZOpyridine HCL 200 MG TAB 200 MG TABLET ONE (09:50)
[2023-12-26] MEDS: PHENAZOpyridine HCL 200 MG TAB 200 MG TABLET PO ONE (09:51)
[2023-12-26] MEDS: cefTRIAXone 1G VIAL IVPB ONE (09:51)
[2023-12-26] MEDS ORDERED: LEVO750T68 PO (09:58)
[2023-12-26 10:26] VITALS: BP 142/72; PULSE 72; RESP 16; TEMP 98.1; O2SAT 96
== END 2023-12-26 10:29 | disposition home or self-care (01) ==
LOC: EDH 08:12
DX: N39.0 Urinary tract infection, site not specified (principal); K21.9 Gastro-esophageal reflux disease without esophagitis; M19.90 Unspecified osteoarthritis, unspecified site; Z79.01 Long term (current) use of anticoagulants; Z79.899 Other long term (current) drug therapy; Z90.710 Acquired absence of both cervix and uterus
CPT/HCPCS: 99284; 74176; 96374; 80048; 85025; 87086; 81001; 36415; J0696

== ENCOUNTER 2024-06-16 09:15 | Emergency (ER) | payer MEDICARE, OTHER ==
[~2024-06-16] VITALS: Ht 157.5 cm; Wt 87.5 kg
[~2024-06-16 09:15] MED LIST changes: -LEVO750T39 PO; +LEVO750T68 PO; +LEVO750T90 PO; -TAMS-1 PO; +TAMS-55 PO
--- NOTE | 2024-06-16 09:56 | ERN ---
General Chief Complaint: Painful Urination Stated Complaint: DYSURIA, PELVIC PAIN Time Seen by MD: 09:18 History of Present Illness Initial Comments 68-year-old female presents with suprapubic pain dysuria and urgency. Patient reports she was had multiple urinary tract infections in the past. Her symptoms started about four days ago, she went to her PCP and was started on Macrobid. She reports she was she was due to take her last pills today but her symptoms are quite uncomfortable. She denies any fever. Mild nausea. No flank pain. No diarrhea. She was no abdominal tenderness. History of hysterectomy no other surgeries. Allergies: Coded Allergies: No Known Allergies (Unverified Allergy, Unknown, 02/21/21) Home Meds Active Scripts Levofloxacin (Levaquin 750Mg Tabs) 750 Mg Tablet, 1 TAB PO DAILY for 7 Days, #7 TAB 0 Refills Prov:FRANKLIN ONEILL MD 12/26/23 Tamsulosin HCl (Flomax) 0.4 Mg Cap.er.24h, 0.4 MG PO DAILY for 5 Days, #5 CAPSULE. Prov:KESHA MOORE 10/28/23 Levofloxacin (Levofloxacin) 750 Mg Tablet, 750 MG PO DAILY for 7 Days, #7 TAB Prov:PASCUAL ZAVALA MD 10/28/23 Hydrocodone/Acetaminophen (Hydrocodon-Acetaminophen 5-325) 1 Each Tablet, 1-2 E ACH PO Q6HPRN PRN for ACUTE POST-OP PAIN, #56 TAB 0 Refills Prov:RACHEL STONE MD 06/15/21 Ferrous Fumarate (Hemocyte) 324 Mg Tablet, 324 MG PO DAILY PRN for ACUTE BLOOD LOSS ANEMIA, #30 TAB 0 Refills Prov:RACHEL STONE MD 06/15/21 Reported Medications Omeprazole (Omeprazole) 20 Mg Tablet.dr, 20 MG PO DAILY, TAB 06/10/21 Tamsulosin HCl (Flomax) 0.4 Mg Cap.er.24h, 0.4 MG PO QODAY, CAPSULE. 04/14/21 Apixaban (Eliquis) 5 Mg Tablet, 5 MG PO BID, TAB 04/14/21 Past Medical History Past Medical History: Arthritis, DVT, GERD, UTI, Other Medical History Other: ECOLI, HERNIA, HARD OF HEARING,RE OCCURING UTI, BLOOD CLOTS ON ELIQUIS Past Surgical History: Hysterectomy, Other, BTL, Surgical History Other: RT HIP Family History Family History: Negative Social History Social History: Negative, Other Female( History) History: Not Applicable ROS Dictation CONSTITUTIONAL: No chills, no fever, no weakness, no diaphoresis, no malaise. HEAD/FACE: No signs of trauma. EENT: No eye pain, no blurred vision, no tearing, no double vision, no ear pain, no ear discharge, no nose pain, no nasal congestion, no throat pain, no throat swelling, no mouth pain. RESPIRATORY: No cough, no orthopnea, no SOB, no stridor, no wheezing. CARDIOVASCULAR: No chest pain, no edema, no palpitations, no syncope. GASTROINTESTINAL/ABDOMINAL: No abdominal pain, no constipation, no diarrhea, no nausea, no vomiting. GENITOURINARY: Dysuria, urgency, suprapubic discomfort. Denies any lesions. MUSCULOSKELETAL: No back pain, no gout, no joint pain, no joint swelling, no muscle pain, no muscle stiffness, no neck pain. INTEGUMENTARY: No change in color, no change in hair/nails, no dryness, no lesion, no lumps, no rash. NEUROLOGICAL/PSYCH: No anxiety, not depressed, no emotional problem, no headache, no numbness, no pre-existing deficit, no history of seizures, no tremors, no weakness. HEMATOLOGIC/LYMPHATIC: Not anemic, no history of blood clots, no apparent bleeding, no bruising, glands not swollen. All Systems Negative, Except as Noted. Physical Exam Physical Exam Dictation VITAL SIGNS: Reviewed. GENERAL APPEARANCE: Alert, oriented x3, moderate distress due to the discomfort. HEAD AND FACE: Non-traumatic. EYES: PERRL, pink conjunctivas, eyelid no trauma, anterior chamber clear. EARS: Pinnas intact and no signs of trauma or erythema. Ear canals clear and no discharge. TMs no erythema. NOSE: No discharge, no bleeding. OROPHARYNX: Mouth normal, teeth no caries, tongue pink. Pharynx clear, no erythema. Tonsils no exudates, no abscesses noted. Mucous membrane moist. NECK: Supple, non-tender, no thyromegaly, no masses, no JVD, no bruits. BREAST: Deferred. CHEST: No tenderness, no crepitus, no paradoxical movement, no retractions. LUNGS: Clear, well-ventilated, symmetric, no rales, no wheezing, no rhonchi, no stridor, good breath sounds bilaterally. HEART: Regular rate, regular rhythm, no murmur, no gallops. VASCULAR: No peripheral edema. ABDOMEN: Soft, positive bowel sounds, nondistended, no guarding, nontender, no rebound, no masses no hepatomegaly, no splenomegaly, no Bartlett's sign, no hernias. RECTAL: Deferred. GENITAL: Deferred. NEUROLOGICAL: Normal speech, gross motor function intact, gross sensory function intact. MUSCULOSKELETAL: Neck nontender, full range of motion, back nontender, full range of motion. EXTREMITIES: Nontender, full range of motion. SKIN: Color pink, dry, no turgor, no rash, no lacerations, no abrasions, no contusions. LYMPHATICS: Deferred. Results Laboratory and Microbiology Lab and Micro Result Laboratory Tests Test 06/16/24 09:43 06/16/24 10:02 Urine Color DARK-YELLOW (YELLOW) Urine Appearance CLOUDY (CLEAR) H Urine pH 7.5 (5.0-8.0) Urine Specific [place] 1.018 (1.001-1.031) Urine Protein 200 mg/dL (NEGATIVE) H Urine Glucose (UA) NEGATIVE mg/dL (NEGATIVE) Urine Ketones 5 mg/dL (NEGATIVE) H Urine Occult Blood SMALL (NEGATIVE) H Urine Nitrate NEGATIVE (NEGATIVE) Urine Bilirubin NEGATIVE mg/dL (NEGATIVE) Urine Urobilinogen 4.0 mg/dL (0.2-1.0) H Urine Leukocyte Esterase 250 Elinor/uL (NEGATIVE) H Urine RBC 51-100 /HPF (0-1) H Urine WBC TNTC /HPF (0-1) H Urine Squamous Epithelial Cells RARE /HPF (0-2) Urine Bacteria MANY /HPF (None Seen) White Blood Count 4.5 K/uL (4.8-10.8) L Red Blood Count 4.74 MIL/uL (4.00-5.50) Hemoglobin 12.9 g/dL (12.0-16.0) Hematocrit 39.9 % (36-48) Mean Corpuscular Volume 84.2 fL (79-99) Mean Corpuscular Hemoglobin 27.2 pg (27.0-33.0) Mean Corpuscular Hemoglobin Concent 32.3 g/dL (32.0-36.0) Red Cell Distribution Width 14.8 % (11.0-15.5) Platelet Count 235 K/uL (130-400) Mean Platelet Volume 8.8 fL (7.5-10.5) Immature Granulocyte % (Auto) 0.2 % (0-1) Neutrophils (%) (Auto) 66.9 % (40.0-77.0) Lymphocytes (%) (Auto) 20.9 % (21.0-51.0) L Monocytes (%) (Auto) 7.3 % (3.0-13.0) Eosinophils (%) (Auto) 3.8 % (0.0-8.0) Basophils (%) (Auto) 0.9 % (0.0-5.0) Neutrophils # (Auto) 3.0 K/uL (1.8-7.7) Lymphocytes # (Auto) 0.9 K/uL (1.0-4.8) L Monocytes # (Auto) 0.3 K/uL (0.1-1.0) Eosinophils # (Auto) 0.17 K/uL (0.00-0.70) Basophils # (Auto) 0.04 K/uL (0.00-0.20) Absolute Immature Granulocyte (auto 0.01 K/uL (0-1) Nucleated Red Blood Cells 0.0 % (0.0-0.19) Sodium Level 136 mmol/L (136-145) Potassium Level 3.7 mmol/L (3.5-5.1) Chloride Level 101 mmol/L (101-111) Carbon Dioxide Level 27 mmol/L (21-32) Blood Urea Nitrogen 12 mg/dL (7-18) Creatinine 0.8 mg/dL (0.5-1.0) Glomerular Filtration Rate Calc 79 mL/min (>90) Random Glucose 112 mg/dL (70-105) H Lactic Acid Level 1.6 mmol/L (0.8-2.5) Total Calcium 8.6 mg/dL (8.5-10.1) MDM CC: Suprapubic discomfort, frequency, urgency, UTI type symptoms. Historian: Patient Comorbidities: Frequent UTIs Limitations by social determinants of health: None Differential diagnosis: Cystitis, pyelonephritis, sepsis, other Vital signs: Stable remained stable in the ER Labs ( independently ordered and interpreted by me ): CBC shows no leukocytosis or shift. Metabolic panel is unremarkable. Urinalysis positive for infection with leuk esterase and white blood cells. No imaging indicated. Treatment in ED: 1 L lactated Ringer's, 15 mg Toradol, 1 g of Rocephin IV. Reassessment: Patient was pain-free p.o. tolerant nontoxic in appearance. Symptoms most consistent with sinusitis. She took Macrobid and failed. We will brought in spectrum to cefpodoxime prescription, recommend PCP follow up. Patient agrees with the plan. ED Course Orders Procedure Category Date Status Time Cbc With Differential LAB 06/16/24 Complete 09:22 Basic Metabolic Panel LAB 06/16/24 Complete 09:22 Urinalysis Profile LAB 06/16/24 Complete 09:22 Procalcitonin LAB 06/16/24 In Process 09:22 Lactic Acid LAB 06/16/24 Complete 09:27 Blood Cult ROBERT 06/16/24 Logged 09:27 Lactated Ringers PHA 06/16/24 Complete 1000ml (Lactated 09:30 Ketorolac PHA 06/16/24 Complete Tromethamine 15mg/Ml 09:30 Ceftriaxone 1g Vial PHA 06/16/24 Complete (Rocephine 1g Inj) 09:30 Culture Urine ROBERT 06/16/24 In Process 10:04 Current Medications Medications (Trade) Dose Ordered Sig/[place] Route PRN Reason Start Time Stop Time Status Last Admin Dose Admin Ceftriaxone Sodium (ROCEphine 1G INJ) 1 gm ONCE ONCE IVPB 06/16/24 09:30 06/16/24 09:31 DC Ketorolac Tromethamine (toRADol) 15 mg ONCE ONCE IV 06/16/24 09:30 06/16/24 09:31 DC Lactated Ringer's 1,000 ml @ 0 mls/hr ONCE ONCE IV 06/16/24 09:30 06/16/24 09:31 DC Vital Signs Date Time Temp Pulse Resp B/P (MAP) Pulse Ox O2 Delivery O2 Flow Rate FiO2 06/16/24 09:16 98.4 109 14 134/87 95 Room Air 0 DX & DISP Disposition: Discharge Departure Impression: Primary Impression: Acute UTI Condition: Stable Scripts Meloxicam (Meloxicam) 15 Mg Tablet 15 MG PO DAILY PRN for PAIN for 10 Days, #10 TAB Prov: CHRISTOPHER FELDER DO 06/16/24 Cefpodoxime Proxetil (Cefpodoxime Proxetil) 200 Mg Tablet 200 MG PO BID for 10 Days, #20 TAB Prov: CHRISTOPHER FELDER DO 06/16/24 Additional Instructions: Your symptoms are most consistent with a cystitis, or urinary tract infection in the bladder. Your vital signs have been stable here in the ER. Your blood work (CBC, BMP, lactic acid, procalcitonin) shows no signs of sepsis or significant infection. Your urinalysis is positive for infection. You received IV Rocephin, which is an antibiotic, here in the emergency department. I have prescribed cefpodoxime, which is an antibiotic. Please take twice per day as prescribed. I have also prescribed meloxicam, which is a anti-inflammatory pain medication. You can take this once per day as needed for pain or discomfort. As we discussed, you can also take [id number] [place] 0 for 48 hours or so to reduce symptoms. Be sure to drink plenty of liquids. Watery his best. You can try cranberry products for symptoms. I recommend that you follow up with Dr. Mcginnis later this week to ensure resolution of symptoms. Please return to the emergency department if you have any concerning symptoms such as fever greater than 102 F, worsening symptoms, blood in your urine, flank pain or back pain, persistent vomiting, or any other concerning symptom. Referrals: THANG MCGINNIS MD (PCP) CHRISTOPHER FELDER DO Jun 16, 2024 09:56
[2024-06-16 10:02] LABS: BILIRUBIN,URINE NEGATIVE (NEGATIVE); COLOR,URINE DARK-YELLOW (YELLOW); GLUCOSE, URINE (UA) NEGATIVE (NEGATIVE); KETONES,URINE 5 mg/dL (NEGATIVE); LEUKOCYTE ESTERASE ,URINE 250 Leu/uL (NEGATIVE); NITRATE,URINE NEGATIVE (NEGATIVE); OCCULT BLOOD,URINE SMALL (NEGATIVE); PH,URINE 7.5 (5.0-8.0); PROTEIN,URINE 200 mg/dL (NEGATIVE)
[2024-06-16 10:03] LABS: ADD UA MICROSCOPIC YES
[2024-06-16 10:04] LABS: APPEARANCE,URINE CLOUDY (CLEAR)
[2024-06-16 10:10] LABS: BACTERIA,URINE MANY /HPF (None Seen); MUCUS,URINE FEW LPF (None Seen); RBC,URINE 51-100 /HPF (0-1); SQUAMOUS EPITHELIAL CELL,UR RARE /HPF (0-2); WBC,URINE TNTC /HPF (0-1)
[2024-06-16 10:11] LABS: BASOPHILS # (AUTO) 0.04 K/uL (0.00-0.20); BASOPHILS % (AUTO) 0.9 % (0.0-5.0); EOSINOPHILS # (AUTO) 0.17 K/uL (0.00-0.70); EOSINOPHILS % (AUTO) 3.8 % (0.0-8.0); HEMATOCRIT 39.9 % (36-48); IMMATURE GRANULOCYTE ABSOLUTE 0.01 K/uL (0-1); LYMPHOCYTES # (AUTO) 0.9 K/uL (1.0-4.8); LYMPHOCYTES % (AUTO) 20.9 % (21.0-51.0); MEAN CORPUSCULAR HEMOGLOBIN 27.2 pg (27.0-33.0); MEAN CORPUSCULAR HGB CONC 32.3 g/dL (32.0-36.0); MEAN CORPUSCULAR VOLUME 84.2 fL (79-99); MONOCYTES # (AUTO) 0.3 K/uL (0.1-1.0); MONOCYTES % (AUTO) 7.3 % (3.0-13.0); NEUTROPHILS % (AUTO) 66.9 % (40.0-77.0); PLATELET COUNT (AUTO) 235 K/uL (130-400); RED BLOOD CELL COUNT(AUTO) 4.74 MIL/uL (4.00-5.50); RED CELL DISTRIBUTION WIDTH 14.8 % (11.0-15.5); WHITE BLOOD COUNT (AUTO) 4.5 K/uL (4.8-10.8)
[2024-06-16 10:18] LABS: CREATININE 0.8 mg/dL (0.5-1.0); POTASSIUM 3.7 mmol/L (3.5-5.1)
[2024-06-16 10:30] VITALS: BP 132/68; PULSE 87; RESP 16; TEMP 98.1; O2SAT 0
[2024-06-16] MEDS ORDERED: CEFP200T14 PO (10:46)
[2024-06-16] MEDS ORDERED: MELO-108 PO (10:46)
[2024-06-16] MEDS: cefTRIAXone 1G VIAL IVPB ONE (10:53)
[2024-06-16] MEDS: LACTATED RINGERS 1000ML 1,000 ML IV ONE (10:53)
[2024-06-16] MEDS: ketOROlac 15MG/ML VIAL (15MG/ML) IV ONE (10:53)
--- NOTE | 2024-06-16 11:11 | NUR ---
HOME MEDICATIONS ENTERED. PENDING TO BE RESUMED.
--- NOTE | 2024-06-16 11:23 | NUR ---
PATIENT READY TO BE DIACHARGED. PRESCRIPTION GIVEN TO PATIENT. EDUCATED PATIENT ON THE IMPORTANCE TO FOLLOW UP WITH PCP IN 2-3 DAYS. PATIENT AND FAMILY MEMBER VERBALIZED UNDERSTANDING.
--- NOTE | 2024-06-16 11:24 | NUR ---
REMOVED PIV. PATIETS DISCHARGED.
== END 2024-06-16 11:23 | disposition home or self-care (01) ==
LOC: EDH 09:15
DX: N39.0 Urinary tract infection, site not specified (principal); M19.90 Unspecified osteoarthritis, unspecified site; Z79.01 Long term (current) use of anticoagulants; Z79.899 Other long term (current) drug therapy; Z86.718 Personal history of other venous thrombosis and embolism; Z90.710 Acquired absence of both cervix and uterus
CPT/HCPCS: 99284; 96365; 96375; 80048; 85025; 87040 ×2; 87086; 83605; 81001; 36415; 84145; J1885; J0696